=== PATIENT | female | born 2000 | race Caucasian/White ===

== ENCOUNTER 2024-07-31 15:44 | Emergency (ER) | payer OTHER, MEDICAID, SELFPAY ==
--- NOTE | ~2024-07-31 | XR_ITS ---
EXAMINATION: XR chest 2V 07/31/2024 16:28 INDICATION: Dizziness PROCEDURE: 2 view chest COMPARISON: No prior studies for comparison. FINDINGS: The lungs are clear. The cardiomediastinal silhouette is within normal limits. There are no pleural effusions. There is no pneumothorax suspected. IMPRESSION: 1: NO ACUTE CARDIOPULMONARY DISEASE. Reviewed, dictated and finalized at location A.
--- NOTE | 2024-07-31 15:46 | ED_ITS ---
HPI - General Adult General Chief complaint: Shortness of Breath/Dyspnea Stated complaint: CANT BREATH, CANT WALK Time Seen by Provider: 07/31/24 15:45 History of Present Illness HPI narrative: Patient is a 24-year-old female who presents ER with dizziness. Sudden onset with waking up. Spinning. Has trouble walking. Gives her some chest pressure and shortness of breath. Has not had similar symptoms previously. Worse with turning her head or sitting up. Related Data Allergies Allergy/AdvReac Type Severity Reaction Status Date / Time No Known Allergies Allergy Mild Verified 07/31/24 15:51 Review of Systems Review of Systems: All systems reviewed & are unremarkable except as noted in HPI and below Constitutional: Constitutional: Reports no additional constitutional complaints Eyes: Eyes: Reports no additional eye complaints ENT: Reports system reviewed and no additional complaints, except as documented Cardiovascular: Cardiovascular: Reports no additional cardiovascular complaints Respiratory: Respiratory: Reports no additional respiratory complaints PMF Past Medical History Medical History (Updated 07/31/24 @ 18:48 by Erik Jackson MD) Healthy female adult Surgical History Surgical History (Updated 07/31/24 @ 18:46 by Erik Jackson MD) No history of previous surgery Exam Narrative: GENERAL: Well-appearing, well-nourished, and in no acute distress. HEAD: Normocephalic, atraumatic. Eyes: PERRLA, EOMI. ENT: Mucous membranes moist. TMs normal bilaterally. CHEST: Clear to auscultation. No respiratory distress. HEART: Regular rate and rhythm. Normal peripheral pulses. EXTREMITIES: Normal range of motion. No edema. NEURO: Alert and oriented x3. PSYCH: Normal mood and affect. Course Course Emergency Course: Symptoms markedly improved with meclizine. Appropriate for discharge home. Unremarkable lab work. Normal chest x-ray. Discharge Plan Discharge Clinical Impression: Vertigo Patient Disposition: Home Condition: Stable Instructions: Vertigo (ED) Additional Instructions: Return ER if you have chest pain shortness of breath, you can not keep down food water, you lose consciousness, have additional concerns. Follow-up with your primary care doctor for further treatment and evaluation. Patient Language: Cook Islander Prescriptions: New meclizine 25 mg tablet 25 mg PO BID PRN (Reason: dizziness) Qty: 20 0RF Follow-up/Referrals: Lurdes,Dionne Viera MD [Primary Care Provider] - 1 Week
[2024-07-31 15:51] VITALS: BP 138/83; PULSE 115; RESP 18; TEMP 36; O2SAT 100
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
--- OUTSIDE RECORDS SUMMARY | 2024-07-31 16:00 | XMS_ITS | Referral Summary ---
Author Organization [facility] Address [address] [place] [address] Care Team Providers Care Pet Food Deboner Name Role Phone Dionne Chatman MD Primary Care Provider [phone] Allergies Active Allergy Reactions Criticality Noted Date [...] 08/27/2019 seen in ED after ultrasound from [place] with nonviable . 09/08/2019 scheduled for repeat [...] (09/11/2019): Added automatically from request for surgery [id number] Social History Tobacco Use Types Packs/Day Years [...] on file Legal Sex Female 11:56 PM TRAVEL GUIDE Gender Identity Not on file Sexual Orientation Not on file Last Filed Vital Signs Vital Sign Reading Time Taken Comments Blood Pressure 118/80 01/21/2022 4:04 AM TRAVEL GUIDE Pulse 94 01/21/2022 4:04 AM TRAVEL GUIDE Temperature 36.2 C (97.2 F) 01/21/2022 4:04 AM TRAVEL GUIDE Respiratory Rate 18 01/21/2022 4:04 AM TRAVEL GUIDE Oxygen Saturation 99% 01/21/2022 4:04 AM TRAVEL GUIDE Inhaled Oxygen Concentration - - Weight 59 kg (130 lb) 01/03/2022 11:31 AM TRAVEL GUIDE Height 165.1 cm (5' 5) 01/03/2022 11:31 AM TRAVEL GUIDE Body Mass Index 21.63 01/03/2022 11:31 AM TRAVEL GUIDE Plan of Treatment Not on file Procedures Procedure Name Priority Date/Time Associated Diagnosis Comments N. GONORRHOEAE/C. TRACHOMATIS AMPLIFICATION Routine 01/27/2021 10:26 AM TRAVEL GUIDE Routine screening for STI (sexually transmitted infection) from Last 3 Months or Most Recently Relevant to Health Maintenance Results * N. gonorrhoeae/C. trachomatis Amplification Urine (01/27/2021 10:26 AM TRAVEL GUIDE) C. trachomatis Not Detected Not Detected [facility] N. gonorrhoeae Not Detected Not Detected [facility] Comment: Interpretive Data Testing performed by the [facility]. This assay detects Chlamydia trachomatis [...] 2018. Urine (None) 01/27/2021 10:2 6 AM TRAVEL GUIDE 01/27/2021 4:35 PM TRAVEL GUIDE us Carmen Koch NP LAB MICROBIOLOGY - GENER AL ORDERABLES Final Result [facility] Department [place] [address] from Last 3 Months or Most Recently Relevant to Health Maintenance Insurance [facility] Care Teams Pet Food Deboner Relationship Specialty Start Date End Date Dionne Chatman MD PCP - General 08/27/19
[2024-07-31] MEDS: MECLIZINE HCL 25 MG TABLET PO (16:37)
[2024-07-31] MEDS: SODIUM CHLORIDE 0.9% IV 1,000 ML 999 ML IV CONT (16:37)
[2024-07-31 16:45] LABS: Basophils Percent Auto 0.4 % (0.2-1.2); Eosinophils Absolute Auto 0.1 K/mm3 (0-0.3); Eosinophils Percent Auto 1.3 % (0-4.4); Hematocrit 41.8 % (37.0-47.0); Hemoglobin 13.6 g/dL (12.0-15.0); Immature Granulocyte Absolute 0.02 K/mm3 (0.00-0.031); Immature Granulocyte Percent A 0.2 % (0-0.5); Lymphocytes Absolute Auto 1.51 K/mm3 (0.9-3.2); Lymphocytes Percent Auto 15.5 % (18.3-44.2); Mean Corpuscular HGB Conc 32.5 g/dl (32-36); Mean Corpuscular Hemoglobin 28.9 pg (26-34); Mean Corpuscular Volume 88.9 fl (80-100); Monocytes Absolute Auto 0.6 K/mm3 (0.1-0.6); Monocytes Percent Auto 6.3 % (2.6-8.5); Neutrophils Absolute Auto 7.4 K/mm3 (1.3-6.7); Neutrophils Percent Auto 76.3 % (45.5-73.1); Platelet Count Result 264 k/mm3 (150-375); Red Cell Distribution Width 12.2 % (11.5-14.5); White Blood Count 9.7 K/mm3 (4.5-10.0)
[2024-07-31 17:07] LABS: Alanine Aminotransferase 16 U/L (6-35); Albumin Level 4.8 g/dL (3.5-5.1); Alkaline Phosphatase 44 U/L (38-126); Anion Gap 8 mmol/L (4-12); Aspartate Amino Transferase 26 U/L (14-36); Bilirubin,Total 0.7 mg/dL (0.2-1.3); Blood Urea Nitrogen 9 mg/dL (7-17); Calcium 9.5 mg/dL (8.4-10.2); Carbon Dioxide 25 mmol/L (22-30); Chloride 107 mmol/L (98-107); Estimated CRCL calculation 100 ml/min; Estimated Glomerular Filt Rate > 60; Glucose 101 mg/dL (65-110); Potassium 3.6 mmol/L (3.4-5.0); Sodium 140 mmol/L (137-145); Total Protein 7.8 g/dL (6.3-8.2)
--- OUTSIDE RECORDS SUMMARY | 2024-07-31 17:15 | XMS_ITS | Referral Summary ---
Author Organization [facility] Address [address] [place] [address] Care Team Providers Care Oracle Obiee Developer Name Role Phone Dionne Chatman MD Primary Care Provider [phone] Allergies Active Allergy Reactions Criticality Noted Date [...] 08/27/2019 seen in ED after ultrasound from [place] with nonviable . 09/08/2019 scheduled for repeat [...] (09/11/2019): Added automatically from request for surgery [id number] Social History Tobacco Use Types Packs/Day Years [...] on file Legal Sex Female 11:56 PM ORTHOPEDIC MECHANIC Gender Identity Not on file Sexual Orientation Not on file Last Filed Vital Signs Vital Sign Reading Time Taken Comments Blood Pressure 118/80 01/21/2022 4:04 AM ORTHOPEDIC MECHANIC Pulse 94 01/21/2022 4:04 AM ORTHOPEDIC MECHANIC Temperature 36.2 C (97.2 F) 01/21/2022 4:04 AM ORTHOPEDIC MECHANIC Respiratory Rate 18 01/21/2022 4:04 AM ORTHOPEDIC MECHANIC Oxygen Saturation 99% 01/21/2022 4:04 AM ORTHOPEDIC MECHANIC Inhaled Oxygen Concentration - - Weight 59 kg (130 lb) 01/03/2022 11:31 AM ORTHOPEDIC MECHANIC Height 165.1 cm (5' 5) 01/03/2022 11:31 AM ORTHOPEDIC MECHANIC Body Mass Index 21.63 01/03/2022 11:31 AM ORTHOPEDIC MECHANIC Plan of Treatment Not on file Procedures Procedure Name Priority Date/Time Associated Diagnosis Comments N. GONORRHOEAE/C. TRACHOMATIS AMPLIFICATION Routine 01/27/2021 10:26 AM ORTHOPEDIC MECHANIC Routine screening for STI (sexually transmitted infection) from Last 3 Months or Most Recently Relevant to Health Maintenance Results * N. gonorrhoeae/C. trachomatis Amplification Urine (01/27/2021 10:26 AM ORTHOPEDIC MECHANIC) C. trachomatis Not Detected Not Detected [facility] N. gonorrhoeae Not Detected Not Detected [facility] Comment: Interpretive Data Testing performed by the [facility]. This assay detects Chlamydia trachomatis [...] 2018. Urine (None) 01/27/2021 10:2 6 AM ORTHOPEDIC MECHANIC 01/27/2021 4:35 PM ORTHOPEDIC MECHANIC us Carmen Koch NP LAB MICROBIOLOGY - GENER AL ORDERABLES Final Result [facility] Department [place] [address] from Last 3 Months or Most Recently Relevant to Health Maintenance Insurance [facility]AN [facility] Care Teams Oracle Obiee Developer Relationship Specialty Start Date End Date Dionne Chatman MD PCP - General 08/27/19
--- OUTSIDE RECORDS SUMMARY | 2024-07-31 17:15 | XMS_ITS | Clinical Summary ---
Author Organization [facility] Address [address] [place] [address] Care Team Providers Care Biogeographer Name Role Phone Dionne Chatman MD Primary Care Provider [phone] Allergies Active Allergy Reactions Criticality Noted Date [...] 08/27/2019 seen in ED after ultrasound from [place] with nonviable . 09/08/2019 scheduled for repeat [...] (09/11/2019): Added automatically from request for surgery [id number] Surgical History Surgery Date Site/Laterality Comments DILATION [...] on file Legal Sex Female 11:56 PM WORKSITE WELLNESS PRACTITIONER Gender Identity Not on file Sexual Orientation [...] Comments Blood Pressure 118/80 01/21/2022 4:04 AM WORKSITE WELLNESS PRACTITIONER Pulse 94 01/21/2022 4:04 AM WORKSITE WELLNESS PRACTITIONER Temperature 36.2 C (97.2 F) 01/21/2022 4:04 AM WORKSITE WELLNESS PRACTITIONER Respiratory Rate 18 01/21/2022 4:04 AM WORKSITE WELLNESS PRACTITIONER Oxygen Saturation 99% 01/21/2022 4:04 AM WORKSITE WELLNESS PRACTITIONER Inhaled Oxygen Concentration - - Weight 59 kg (130 lb) 01/03/2022 11:31 AM WORKSITE WELLNESS PRACTITIONER Height 165.1 cm (5' 5) 01/03/2022 11:31 AM WORKSITE WELLNESS PRACTITIONER Body Mass Index 21.63 01/03/2022 11:31 AM WORKSITE WELLNESS PRACTITIONER Plan of Treatment Health Maintenance Due Date [...] GONORRHOEAE/C. TRACHOMATIS AMPLIFICATION Routine 01/27/2021 10:26 AM WORKSITE WELLNESS PRACTITIONER Routine screening for STI (sexually transmitted infection) from Last 3 Months or Most Recently Relevant to Health Maintenance Results * N. gonorrhoeae/C. trachomatis Amplification Urine (01/27/2021 10:26 AM WORKSITE WELLNESS PRACTITIONER) C. trachomatis Not Detected Not Detected [facility] N. gonorrhoeae Not Detected Not Detected [facility] Comment: Interpretive Data Testing performed by the [facility]. This assay detects Chlamydia trachomatis and [...] 2018. Urine (None) 01/27/2021 10:2 6 AM WORKSITE WELLNESS PRACTITIONER 01/27/2021 4:35 PM WORKSITE WELLNESS PRACTITIONER us Carmen Koch PIER RUNNER LAB MICROBIOLOGY - GENER AL ORDERABLES Final Result [facility] Department [place] [address] from Last 3 Months or Most Recently Relevant to Health Maintenance Insurance [facility] Care Teams Biogeographer Relationship Specialty Start Date End Date Dionne Chatman MD PCP - General 08/27/19
[2024-07-31 17:33] LABS: Add Urine Microscopic? NO; Appearance Urine Clear (Clear); Bilirubin Urine Negative (Negative); Blood Urine Negative (Negative); Color Urine Yellow (Yellow); Glucose Urine UA Negative (Negative); Ketones Urine Negative (Negative); Leukocyte Esterase Ur Negative LEU/UL (Negative); Nitrate Urine Negative (Negative); Protein Urine Negative (Negative); Urobilinogen Urine 0.2 mg/dL (<2.0)
[2024-07-31 17:45] VITALS: BP 118/97; PULSE 83; RESP 18; O2SAT 99
[2024-07-31 18:34] VITALS: BP 111/77; PULSE 92; RESP 18; O2SAT 99
== END 2024-07-31 19:03 | disposition home or self-care (01) ==
PROVIDERS: Emergency Provider Emergency Medicine; PCP Pediatrics Adolescent Medicine
DX: R42 Dizziness and giddiness (principal)
CPT/HCPCS: 36415; 71046; 80053; 81003; 85025; 96360; 99283; A9270; J7030